=== PATIENT | male | born 1995 | race African-American/Black ===

== ENCOUNTER 2020-08-23 08:00 | Outpatient (CLI) | payer OTHER ==
[2020-08-24 00:04] LABS: NEISSERIA GONORRHOEAE DNA NEGATIVE (NEGATIVE)
[2020-08-24 00:07] LABS: CHLAMYDIA TRACHOMATIS DNA POSITIVE (NEGATIVE)
== END 2020-08-23 23:59 | disposition home or self-care (01) ==
LOC: LAB.N 08:00
PROVIDERS: ATTEND Physician Assistant Medical
DX: A74.9 Chlamydial infection, unspecified (principal)
CPT/HCPCS: 87491; 87591; 87661

== ENCOUNTER 2020-09-02 13:50 | Emergency (ER) | payer OTHER ==
--- NOTE | 2020-09-02 14:04 | ED Physician Documentation ---
PD HPI UPPER EXT INJURY - Stated complaint Stated Complaint: R WRIST INJURY - Chief complaint Chief Complaint: Trauma Ext - History obtained from History obtained from: Patient - History of Present Illness Location: Right, Wrist Type of injury: Fall ([employer] playing basketball. Pain in wrist. Denies other injury.) Timing - onset: Today (shortly [employer]) Timing - duration: Hours (1) Timing - details: Abrupt onset, Still present Improved by: No: Rest Worsened by: Moving, Palpating Associated symptoms: Swelling. No: Weakness, Numbness Similar symptoms before: Has not had sx before Recently seen: Not recently seen Review of Systems Constitutional: denies: Fever, Chills Nose: denies: Rhinorrhea / runny nose, Congestion Throat: denies: Sore throat Respiratory: denies: Cough Skin: denies: Abrasion (s), Laceration (s) Neurologic: denies: Focal weakness, Numbness PD PAST MEDICAL HISTORY - Past Medical History Cardiovascular: None Respiratory: None Musculoskeletal: None - Present Medications Home Medications: Ambulatory Orders Medication Instructions Recorded Confirmed HYDROcod/ACETAM 5/325 [[place] 5/325] 1 ea PO Q6H PRN #12 tablet 09/02/20 Ibuprofen [Motrin] 600 mg PO TID PRN #25 tab 09/02/20 - Allergies Allergies/Adverse Reactions: Allergies Allergy/AdvReac Type Severity Reaction Status Date / Time No Known Drug Allergies Allergy Verified 09/02/20 14:02 PD ED PE NORMAL - Vitals Vital signs reviewed: Yes - General General: Alert and oriented X 3, Well developed/nourished, Other (appears in pain due to wrist. ) - HEENT HEENT: Atraumatic - Neck Neck: Supple, no meningeal sign, No bony TTP - Derm Derm: Normal color, Warm and dry - Extremities Extremities: Other (right wrist with tenderness radial dorsal wrist with some swelling. ) - Neuro Neuro: Alert and oriented X 3, No motor deficit, No sensory deficit, Normal speech, Other (normal color and cap refill in fingers. ) Results - Vitals Vitals: Vital Signs - 24 hr 09/02/20 09/02/20 13:57 15:10 Temperature 36.9 C 36.7 C Heart Rate 89 69 Respiratory 16 16 Rate Blood Pressure 115/71 121/65 O2 Saturation 99 100 Oxygen O2 Source Room air - Rads (name of study) right wrist Radiology: Prelim report reviewed (comminuted distal radial intra-articular fracture. Minimally dorsally displaced. ), See rad report Procedures - Splint (location) right wrist Splint applied by: Tech Type of splint: Fiberglass, Sugar tong Other: Patient tolerated well, No complications, Neurovascular intact, Sling provided PD MEDICAL DECISION MAKING - ED course Complexity details: reviewed results, re-evaluated patient, considered differential, d/w patient Departure - Departure Disposition: 01 Home, Self Care Clinical Impression: Accidental fall Qualifiers: Encounter type: initial encounter Qualified Code(s): W19.XXXA - Unspecified fall, initial encounter Distal radius fracture, right Qualifiers: Encounter type: initial encounter Fracture type: closed Fracture morphology: Colles' Qualified Code(s): S52.531A - Colles' fracture of right radius, initial encounter for closed fracture Condition: Stable Record reviewed to determine appropriate education?: Yes Instructions: ED Fx Colles Wrist No Redu Requ Follow-Up: SU[facility] Benoitdemetrius Smalls [Provider Group] Prescriptions: Ibuprofen [Motrin] 600 mg PO TID PRN #25 tab PRN Reason: Pain HYDROcod/ACETAM 5/325 [[place] 5/325] 1 ea PO Q6H PRN #12 tablet PRN Reason: Pain Comments: Your wrist is broken and will need ongoing care by framing specialist. Keep the splint on and clean and dry. Rest ice and elevate the wrist often to reduce swelling. Contact your primary care Friday for a follow-up on this. [place] Use some anti-inflammatories of ibuprofen 3 times a day with food. To that add Tylenol every 4-6 hours if needed for pain. Alternatively hydrocodone if needed for worse pain. This is likely to be most needed in the first several days until the inflammation goes down. The splint will help quite a bit for reducing pain as well. Limited to no activity with the right hand until further clearance by your specialist. I am writing activity restriction note for no use of the right wrist for 4 to 6 weeks. Particular further details should be by your primary care and orthop edics. I am prescribing a short course of narcotic pain medication for you. These are potentially dangerous and addictive medications that should be used carefully. These medications may constipate you. Take an [id number] stool softener such as docusate twice daily with plenty of water while taking these medications. If you go 24 hours without a bowel movement, take [id number] MiraLAX, per package instructions. Do not drink or drive while taking these medications. If you received narcotic or sedating medications while in the emergency department do not drive for 24 hours. Store this medication in a safe, secure place and out of reach of children. It is a violation of federal law to give or sell this medication to another person or to use in a manner other than prescribed. The ED will not refill narcotic prescriptions, including prescriptions lost or stolen. You can dispose of unwanted medications at the [facility]'s office or at several pharmacies such as [facility]. Forms: Activity restrictions Discharge Date/Time: 09/02/20 15:11
[2020-09-02] MEDS ORDERED: IBUPROFEN 600 MG TABLET PO STA (14:23)
[2020-09-02] MEDS ORDERED: ACETAMINOPHEN 325 MG TABLET PO STA (14:23)
[2020-09-02] MEDS ORDERED: HYDROcod/ACETAM 5/325 MG TABLET PO STA (14:30)
--- NOTE | 2020-09-02 14:32 | XRAY Report ---
PROCEDURE: Wrist 3 View RT INDICATIONS: injury TECHNIQUE: 3 views of the wrist were acquired. COMPARISON: None FINDINGS: Bones: There is a moderately displaced comminuted fracture of the distal radius with articular surfac e extension to the radiocarpal joint. Mild displaced ulnar styloid fracture is present. No suspicious bony lesions. Scaphoid view: Not requested Soft tissues: No suspicious soft tissue calcifications. IMPRESSION: Distal radial and ulnar fractures as described above. Reviewed by: Bud Bolaños MD on 09/02/2020 2:30 PM PDT Approved by: Bud Bolaños MD on 09/02/2020 2:30 PM PDT Station ID: [id number]
[2020-09-02 15:11] VITALS: BP 121/65
== END 2020-09-02 15:11 | disposition home or self-care (01) ==
LOC: ED 13:50
DX: S52.531A Colles' fracture of right radius, initial encounter for closed fracture (principal); W18.39XA Other fall on same level, initial encounter; Y93.67 Activity, basketball
CPT/HCPCS: 29125; 73110; 99283; 99284; A9270

== ENCOUNTER 2020-09-19 08:00 | Outpatient (CLI) | payer OTHER ==
[2020-09-19 23:39] LABS: CHLAMYDIA TRACHOMATIS DNA NEGATIVE (NEGATIVE); NEISSERIA GONORRHOEAE DNA NEGATIVE (NEGATIVE)
== END 2020-09-19 23:59 | disposition home or self-care (01) ==
LOC: LAB.N 08:00
PROVIDERS: ATTEND Nurse Practitioner
DX: A74.9 Chlamydial infection, unspecified (principal)
CPT/HCPCS: 87491; 87591; 87661

== ENCOUNTER 2022-04-25 08:00 | Outpatient (CLI) | payer OTHER ==
[2022-04-26 01:17] LABS: CHLAMYDIA TRACHOMATIS DNA POSITIVE (NEGATIVE); NEISSERIA GONORRHOEAE DNA NEGATIVE (NEGATIVE)
== END 2022-04-25 23:59 | disposition home or self-care (01) ==
LOC: LAB.N 08:00
PROVIDERS: ATTEND Nurse Practitioner
DX: Z11.3 Encounter for screening for infections with a predominantly sexual mode of transmission (principal)
CPT/HCPCS: 87086; 87491; 87591; 87661

== ENCOUNTER 2023-10-13 18:00 | Emergency (ER) | payer OTHER ==
[2023-10-13 18:10] VITALS: BP 137/80; O2SAT 99
--- NOTE | 2023-10-13 18:20 | ED Physician Documentation ---
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 No fall. No trauma. No loss of consciousness. No chest pain. No shortness of breath. Asymptomatic. Shocked in the left wrist. Review of Systems Cardiac: denies: Chest pain / pressure, Palpitations PD PAST MEDICAL HISTORY - Past Medical History Past Medical History: No Cardiovascular: None Respiratory: None Neuro: None Endocrine/Autoimmune: None GI: None : None HEENT: None Psych: None Musculoskeletal: None Derm: None - Past Surgical History Past Surgical History: Yes Ortho: Other - Present Medications Home Medications: Ambulatory Orders Medication Instructions Recorded Confirmed HYDROcod/ACETAM 5/325 [[place] 5/325] 1 ea PO Q6H PRN #12 tablet 09/02/20 Ibuprofen [Motrin] 600 mg PO TID PRN #25 tab 09/02/20 - Allergies Allergies/Adverse Reactions: Allergies Allergy/AdvReac Type Severity Reaction Status Date / Time No Known Drug Allergies Allergy Verified 10/13/23 18:07 - Social History Does the pt smoke?: No Smoking Status: Never smoker Does the pt drink ETOH?: No Does the pt have substance abuse?: No - Immunizations Immunizations are current?: Yes PD ED PE NORMAL - Vitals Vital signs reviewed: Yes - General General: Alert and oriented X 3, No acute distress - HEENT HEENT: Moist mucous membranes - Neck Neck: Supple, no meningeal sign - Cardiac Cardiac: RRR, No murmur, Strong equal pulses - Respiratory Respiratory: No respiratory distress - Derm Derm: Warm and dry - Extremities Extremities: Other (Normal examination of the extremities, no electrical vila) Results - Vitals Vitals: Vital Signs - 24 hr 10/13/23 18:03 Temperature 36.9 C Heart Rate 73 Respiratory 16 Rate Blood Pressure 137/80 H O2 Saturation 99 Oxygen O2 Source Room air - EKG (time done) 1814 EKG releavant findings:: EKG personally interpreted by author of this note. 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 Normal EKG. Asymptomatic. No emergency medical condition at this time. No electrical vila. Patient counseled regarding signs and symptoms for which I believe and urgent re-evaluation would be necessary. Patient with good understanding of and agreement to plan and is comfortable going home at this time This document was made in part using voice recognition software. While efforts are made to proofread this document, sound alike and grammatical errors may occur. Departure - Departure Disposition: 01 Home, Self Care Clinical Impression: Electric shock Qualifiers: Encounter type: initial encounter Qualified Code(s): T75.4XXA - Electrocution, initial encounter Condition: Good Instructions: ED Burn Electrical Follow-Up: your,doctor as needed [Other] Comments: You do not require any further treatment today. Please follow-up with your doctor as needed for any further care. Return if you worsen Forms: PCP List
== END 2023-10-13 18:27 | disposition home or self-care (01) ==
LOC: ED 18:00
DX: T75.4XXA Electrocution, initial encounter (principal); W86.1XXA Exposure to industrial wiring, appliances and electrical machinery, initial encounter; Y93.89 Activity, other specified; Y92.139 Unspecified place military base as the place of occurrence of the external cause; Y99.1 Military activity
CPT/HCPCS: 93005; 99283

== ENCOUNTER 2023-11-06 17:15 | Outpatient (CLI) | payer OTHER ==
[2023-11-07 00:59] LABS: CHLAMYDIA TRACHOMATIS DNA NEGATIVE (NEGATIVE); NEISSERIA GONORRHOEAE DNA NEGATIVE (NEGATIVE); TRICHOMONAS VAGINALIS DNA NEGATIVE (NEGATIVE)
== END 2023-11-06 17:30 | disposition home or self-care (01) ==
LOC: LAB.N 17:15
PROVIDERS: ATTEND Family Medicine
DX: Z11.3 Encounter for screening for infections with a predominantly sexual mode of transmission (principal)
CPT/HCPCS: 87491; 87591; 87661